=== PATIENT | male | born 1995 | race Caucasian/White ===

== ENCOUNTER 2019-05-10 19:36 | Emergency (ER) | payer SELFPAY ==
[2019-05-10 19:57] VITALS: BP 120/73; PULSE 87; RESP 16; TEMP 98.7; O2SAT 100
== END 2019-05-10 20:24 | disposition home or self-care (01) | DRG 563 ==
LOC: ED 19:36
DX: S66.911A Strain of unspecified muscle, fascia and tendon at wrist and hand level, right hand, initial encounter (principal); M79.641 Pain in right hand; X50.0XXA Overexertion from strenuous movement or load, initial encounter
CPT/HCPCS: 99282